=== PATIENT | male | born 1980 | race Caucasian/White ===

== ENCOUNTER 2018-05-24 14:36 | Emergency (ER) | payer MEDICAID ==
--- NOTE | 2018-05-24 14:52 | Emergency Department Record ---
History of Present Illness - General Chief Complaint: Abdominal Pain Stated Complaint: LOWER LT ABDOMINAL PAIN Time Seen by Provider: 05/24/18 14:45 Source: Patient Mode of Arrival: Ambulatory Limitations: No limitations - History of Present Illness Initial Comments: The patient is here due to worsening LLQ AP. The patient has had a L inguinal hernia for a long time and was scheduled to get it fixed 3 weeks ago but cancelled the surgery. Today he was shoveling and felt a sharp pain and the hernia worsened. Due to that fact he is now in the ER. There has been no fever, chills, vomiting, diarrhea or dysuria. MD Complaint: Abdominal pain Onset/Timin -: Days(s) Location: LLQ Radiation: None Consistency: Constant Improves With: Nothing Worsens With: Nothing Associated Symptoms: Denies other symptoms - Related Data Previous Rx's Medication Instructions Recorded Naproxen [Naprosyn] 500 mg PO BID #14 tablet. 05/24/18 Allergies Allergy/AdvReac Type Severity Reaction Status Date / Time No Known Allergies Allergy no Verified 05/24/18 14:39 allergies Travel Screening - Travel/Exposure Within Last 30 Days Have you traveled within the last 30 days?: No Review of Systems Constitutional: Denies: Chills, Fever Past Medical History - SOCIAL HISTORY Smoking Status: Current every day smoker Alcohol Use: None - RESPIRATORY Hx Respiratory Disorders: No - CARDIOVASCULAR Hx Cardio Disorders: Yes Hx Hypertension: Yes - NEURO Hx Neuro Disorders: No - GI Hx GI Disorders: Yes Comment:: hernia - Hx Genitourinary Disorders: No - ENDOCRINE Hx Endocrine Disorders: Yes Hx Diabetes: Yes - MUSCULOSKELETAL Hx Musculoskeletal Disorders: No - PSYCH Hx Psych Problems: No - HEMATOLOGY/ONCOLOGY Hx Hematology/Oncology Disorders: No Family Medical History Any Significant Family History?: No Physical Exam - General General Appearance: Alert, Cooperative, No acute distress - Head Head exam: Atraumatic, Normocephalic - Eye Eye exam: Normal appearance - Respiratory Respiratory exam: Normal lung sounds bilaterally. negative: Respiratory distress - Cardiovascular Cardiovascular Exam: Regular rate, Normal rhythm, Normal heart sounds - GI/Abdominal GI/Abdominal exam: Soft, Normal bowel sounds, Hernia (The patient has a very easily reducible L inguinal hernia with mild tenderness. ), Tenderness (LLQ). negative: Guarding, Organomegaly, Rebound - exam: Circumcision, Testicular tenderness (There is mild L testicle tenderness. ). negative: Scrotal swelling, Urethral discharge, Vertical testicular lie - Extremities Extremities exam: Normal inspection, Full ROM, Normal capillary refill. negative: Tenderness Course Vital Signs 05/24/18 14:40 Temperature 97.9 F Pulse Rate 91 H Respiratory 20 Rate Blood Pressure 129/90 Pulse Ox 96 - Reevaluation(s) Reevaluation #1: Further hx from the patient: he states he has had the large hernia for a long time and does usually push it in successfully. Since he shoveled he felt a sharp pain and felt the hernia was larger. He is still able to reduce it himself. 05/24/18 15:21 Reevaluation #2: I did discuss the case with the patient's surgeon Dr. Randolph and he would like to see the patient in the office in 2 days where he will discuss surgical options with him. 05/24/18 15:23 Reevaluation #3: The patient is resting comfortably but his L inguinal hernia did again become painful. The hernia is again very easily reducible with resolution of his pain. I explained again the need for seeing Dr. Randolph on Thu in 2 days. He is to take Naprosyn for pain and to not lift or bend at work and is to return for any worsening symptoms. 05/24/18 16:28 Medical Decision Making - Data Complexity MDM Data: Labs Ordered and/or Reviewed, X-Ray Ordered and/or Reviewed - Radiology Data Radiology results: Report reviewed (Testicle US: Neg.) Disposition Disposition: Discharge Clinical Impression: Inguinal hernia Qualifiers: Obstruction and gangrene presence: without obstruction or gangrene Laterality: unilateral Recurrence: recurrent Qualified Code(s): K40.91 - Unilateral inguinal hernia, without obstruction or gangrene, recurrent Disposition: Home, Self-Care Condition: (2) Stable Instructions: Inguinal Hernia (ED) Additional Instructions: Please keep the hernia pushed in and no lifting or bending at work. Please see Dr. Randolph in the office on Thursday, call [phone] for the appointment. Return to the ER for any worsening swelling, pain, vomiting, or fever. Prescriptions: Naproxen [Naprosyn] 500 mg PO BID #14 tablet. Forms: Patient Portal Access Time of Disposition: 16:33 Quality - Quality Measures Quality Measures: N/A - Blood Pressure Screening View Details: Yes Does Patient Have Any of the Following: No Blood Pressure Classification: Hypertensive Reading Systolic Measurement: 129 Diastolic Measurement: 90 Screening for High Blood Pressure: < First Hypertensive BP, F/U Documented > [ G8950] First Hypertensive Follow-up Interventions: Referral to alternative/primary care provider.
[2018-05-24 15:10] LABS: URINE APPEARANCE CLEAR; URINE BILIRUBIN NEGATIVE (NEGATIVE); URINE BLOOD NEGATIVE (NEGATIVE); URINE COLOR YELLOW; URINE GLUCOSE (UA) NEGATIVE (NEGATIVE); URINE KETONE NEGATIVE (NEGATIVE); URINE LEUKOCYTE ESTERASE NEGATIVE (NEGATIVE); URINE NITRITE NEGATIVE (NEGATIVE); URINE PROTEIN NEGATIVE (NEGATIVE)
--- NOTE | 2018-05-25 06:58 | ULTRASOUND REPORT ---
EXAM: SCROTAL ULTRASOUND HISTORY: LEFT GROIN PAIN AFTER SHOVELING THIS MORNING, KNOWN HERNIA. TECHNIQUE: Scrotal ultrasound was obtained with Doppler. Comparison: None. FINDINGS: The right testicle measures 4.9 x 2.6 x 2.2 cm. The left testicle measures 3.6 x 2.2 x 2.0 cm. No intratesticular mass is seen. Bilateral intratesticular arterial waveforms are demonstrated. Minimal asymmetric heterogeneity of the left testicular parenchymal echotexture is noted, possibly artifactual. Small left hydrocele. Simple appearing 3 mm left epididymal head cyst. There is slight asymmetric echogenic prominence in the left inguinal region. No obvious peristalsing bowel is seen in this region. IMPRESSION: 1. NO EVIDENCE OF TESTICULAR TORSION. 2. SLIGHTLY ASYMMETRIC ECHOGENIC PROMINENCE IN THE LEFT INGUINAL REGION WITHOUT OBVIOUS PERISTALSING BOWEL; COULD REPRESENT A COMPONENT OF INGUINAL HERNIA. 3. SMALL NONSPECIFIC SCROTAL HYDROCELE. JOB NUMBER: [id number] MTDD
--- NOTE | 2018-05-26 18:23 | Emergency Department Record ---
History of Present Illness - General Chief Complaint: Abdominal Pain Stated Complaint: LOWER LT ABDOMINAL PAIN Time Seen by Provider: 05/24/18 14:45 Source: Patient Mode of Arrival: Ambulatory Limitations: No limitations - History of Present Illness MD Complaint: Abdominal pain Onset/Timin -: Days(s) Location: LLQ Radiation: None Consistency: Constant Improves With: Nothing Worsens With: Nothing Associated Symptoms: Denies other symptoms - Related Data Previous Rx's Medication Instructions Recorded Naproxen [Naprosyn] 500 mg PO BID #14 tablet. 05/24/18 Allergies Allergy/AdvReac Type Severity Reaction Status Date / Time No Known Allergies Allergy no Verified 05/24/18 14:39 allergies Travel Screening - Travel/Exposure Within Last 30 Days Have you traveled within the last 30 days?: No Review of Systems Constitutional: Denies: Chills, Fever Eyes: Denies: Eye discharge ENT: Denies: Congestion Cardiovascular: Denies: Arrhythmia, Chest pain Endocrine: Denies: Fatigue Gastrointestinal: Reports: Abdominal pain. Denies: Nausea Genitourinary: Reports: Testicular pain. Denies: Dysuria Musculoskeletal: Denies: Arthralgia Skin: Denies: Bruising Neurological: Denies: Abnormal gait Past Medical History - SOCIAL HISTORY Smoking Status: Current every day smoker Alcohol Use: None - RESPIRATORY Hx Respiratory Disorders: No - CARDIOVASCULAR Hx Cardio Disorders: Yes Hx Hypertension: Yes - NEURO Hx Neuro Disorders: No - GI Hx GI Disorders: Yes Comment:: hernia - Hx Genitourinary Disorders: No - ENDOCRINE Hx Endocrine Disorders: Yes Hx Diabetes: Yes - MUSCULOSKELETAL Hx Musculoskeletal Disorders: No - PSYCH Hx Psych Problems: No - HEMATOLOGY/ONCOLOGY Hx Hematology/Oncology Disorders: No Family Medical History Any Significant Family History?: No Physical Exam - General Limitations: No limitations Course Vital Signs 05/24/18 05/24/18 14:40 16:43 Temperature 97.9 F 97.7 F Pulse Rate 91 H 87 Respiratory 20 18 Rate Blood Pressure 129/90 124/77 Pulse Ox 96 97 Medical Decision Making - Lab Data Lab Results 05/24/18 Range/Units 15:00 Urine Color Yellow Urine Appearance Clear Urine pH 7.5 (5.0-8.0) Ur Specific Andreas 1.020 (1.002-1.030) Urine Protein Negative (NEGATIVE) Urine Glucose (UA) Negative (NEGATIVE) Urine Ketones Negative (NEGATIVE) Urine Blood Negative (NEGATIVE) Urine Nitrite Negative (NEGATIVE) Urine Bilirubin Negative (NEGATIVE) Urine Urobilinogen 1.0 (0.20 - 1.00) E.U./dL Ur Leukocyte Esterase Negative (NEGATIVE) Disposition Clinical Impression: Inguinal hernia Qualifiers: Obstruction and gangrene presence: without obstruction or gangrene Laterality: unilateral Recurrence: recurrent Qualified Code(s): K40.91 - Unilateral inguinal hernia, without obstruction or gangrene, recurrent Disposition: Home, Self-Care Condition: (2) Stable Instructions: Inguinal Hernia (ED) Additional Instructions: Please keep the hernia pushed in and no lifting or bending at work. Please see Dr. Randolph in the office on Thursday, call [phone] for the appointment. Return to the ER for any worsening swelling, pain, vomiting, or fever. Prescriptions: Naproxen [Naprosyn] 500 mg PO BID #14 tablet.dr Forms: Patient Portal Access Quality - Quality Measures Quality Measures: N/A - Blood Pressure Screening View Details: Yes Does Patient Have Any of the Following: No Blood Pressure Classification: Pre-Hypertensive BP Reading Systolic Measurement: 124 Diastolic Measurement: 77 Screening for High Blood Pressure: < Pre-Hypertensive BP, F/U Documented > [ G8950] Pre-Hypertensive Follow-up Interventions: Referral to alternative/primary care provider.
== END 2018-05-24 16:45 | disposition home or self-care (01) ==
LOC: ER 14:36
DX: K40.91 Unilateral inguinal hernia, without obstruction or gangrene, recurrent (principal); I10 Essential (primary) hypertension; F17.210 Nicotine dependence, cigarettes, uncomplicated; E11.9 Type 2 diabetes mellitus without complications
CPT/HCPCS: 76870; 81003; 99283; 99284

== ENCOUNTER 2018-07-16 13:00 | Emergency (ER) | payer MEDICAID ==
[2018-07-16] MEDS ORDERED: IPRATROPIUM/ALBUTEROL (0.5MG/3MG) NEB INH ONE (13:24)
[2018-07-16 13:51] LABS: BASO % 0.3 % (0-6); EOS % 2.8 % (0-6); GRAN % 68.7 % (47-80); HEMATOCRIT 45.3 % (42.0-52.0); HEMOGLOBIN 15.9 gm/dl (14.0-18.0); MEAN CELL VOLUME 89.2 fl (81-97); MEAN CORPUSCULAR HEMOGLOBIN 31.3 pg (27-33); MEAN CORPUSCULAR HGB CONC 35.1 g/dl (32-36); MONO % 9.2 % (0-9); PLATELET COUNT 228 K/uL (130-400); RED BLOOD COUNT 5.08 M/uL (4.40-5.70); RED CELL DISTRIBUTION WIDTH 13.4 % (11.5-14.5); WHITE BLOOD COUNT W/O DIFF 11.5 K/uL (4.2-12.2)
[2018-07-16 14:02] LABS: BLOOD UREA NITROGEN 10 mg/dL (6-20); CREATININE 0.7 mg/dL (0.7-1.2); EST GLOMERULAR FILTRATION RATE > 60 mL/min
[2018-07-16 14:05] LABS: GLUCOSE,RANDOM 96 mg/dL (74-109)
[2018-07-16] MEDS ORDERED: HEPARIN SODIUM 1000 UNIT/1 ML 10ML VIAL IVP ONE (14:35)
--- NOTE | 2018-07-16 14:44 | Emergency Department Record ---
History of Present Illness - General Chief Complaint: Difficulty Breathing Stated Complaint: CLAIRE Time Seen by Provider: 07/16/18 13:14 Source: Patient Mode of Arrival: Ambulatory Limitations: No limitations - History of Present Illness Initial Comments: pt has productive green cough and feels sob. pts chest feels tight. he smokes MD Complaint: Cough, Shortness of breath Onset/Timin -: Days(s) Severity scale (1-10): 7 Improves With: Nothing Worsens With: Nothing Context: Allergen exposure Associated Symptoms: Cough, Pain with inspiration, Sputum production - Related Data Previous Rx's Medication Instructions Recorded Azithromycin [Zithromax] 250 mg PO DAILY #6 tab 07/16/18 Allergies Allergy/AdvReac Type Severity Reaction Status Date / Time No Known Allergies Allergy no Unverified 07/07/18 17:06 allergies Travel Screening - Travel/Exposure Within Last 30 Days Have you traveled within the last 30 days?: No - Travel/Exposure Within Last Year Have you traveled outside the [place] in the last year?: No - Additonal Travel Details Have you been exposed to anyone with a communicable illness?: No - Travel Symptoms Symptom Screening: None Review of Systems Reviewed: No additional complaints except as noted below Constitutional: Reports: As per HPI. Denies: Chills, Fever, Malaise, Night sweats, Weakness, Weight change Eyes: Reports: As per HPI. Denies: Eye discharge, Eye pain, Photophobia, Vision change ENT: Reports: As per HPI. Denies: Congestion, Dental pain, Ear pain, Epistaxis , Hearing loss, Throat pain Respiratory: Reports: As per HPI, Cough, Dyspnea. Denies: Hemoptysis, Stridor, Wheezes Cardiovascular: Reports: As per HPI. Denies: Arrhythmia, Chest pain, Dyspnea on exertion, Edema, Murmurs, Orthopnea, Palpitations, Paroxysmal nocturnal dyspnea, Rheumatic Fever, Syncope Endocrine: Reports: As per HPI. Denies: Fatigue, Heat or cold intolerance, Polydipsia, Polyuria Gastrointestinal: Reports: As per HPI. Denies: Abdominal pain, Constipation, Diarrhea, Hematemesis, Hematochezia, Melena, Nausea, Vomiting Genitourinary: Reports: As per HPI. Denies: Dysuria, Frequency, Hematuria, Incontinence, Retention, Testicular pain, Testicular mass, Urgency Musculoskeletal: Reports: As per HPI. Denies: Arthralgia, Back pain, Gout, Joint swelling, Myalgia, Neck pain Skin: Reports: As per HPI. Denies: Bruising, Change in color, Change in hair/ nails, Lesions, Pruritus, Rash Neurological: Reports: As per HPI. Denies: Abnormal gait, Confusion, Headache, Numbness, Paresthesias, Seizure, Tingling, Tremors, Vertigo, Weakness Psychiatric: Reports: As per HPI. Denies: Anxiety, Auditory hallucinations, Depression, Homicidal thoughts, Suicidal thoughts, Visual hallucinations Hematological/Lymphatic: Reports: As per HPI. Denies: Anemia, Blood Clots, Easy bleeding, Easy bruising, Swollen glands Past Medical History - SOCIAL HISTORY Smoking Status: Current every day smoker Alcohol Use: None Drug Use: None - RESPIRATORY Hx Respiratory Disorders: Yes Hx Sleep Apnea: Yes (not dx'd) - CARDIOVASCULAR Hx Cardio Disorders: Yes Hx Hypertension: Yes - NEURO Hx Neuro Disorders: Yes Hx Headaches: Yes - GI Hx GI Disorders: Yes Comment:: hernia - Hx Genitourinary Disorders: No - ENDOCRINE Hx Endocrine Disorders: Yes Hx Diabetes: Yes - MUSCULOSKELETAL Hx Musculoskeletal Disorders: No - PSYCH Hx Psych Problems: No - HEMATOLOGY/ONCOLOGY Hx Hematology/Oncology Disorders: No Family Medical History Any Significant Family History?: No Physical Exam - General General Appearance: Alert, Oriented x3, Cooperative, Mild distress - Head Head exam: Normal inspection - Eye Eye exam: Normal appearance, PERRL, EOMI Pupils: Normal accommodation - ENT ENT exam: Normal exam, Mucous membranes moist, Normal external ear exam, Normal orophraynx, TM's normal bilaterally Ear exam: Normal external inspection. negative: External canal tenderness Nasal Exam: Normal inspection. negative: Discharge, Sinus tenderness Mouth exam: Normal external inspection, Tongue normal Teeth exam: Normal inspection. negative: Dental caries Throat exam: Normal inspection. negative: Tonsillar erythema, Tonsillar exudate - Neck Neck exam: Normal inspection, Full ROM. negative: Tenderness - Respiratory Respiratory exam: Normal lung sounds bilaterally. negative: Respiratory distress - Cardiovascular Cardiovascular Exam: Regular rate, Normal rhythm, Normal heart sounds - GI/Abdominal GI/Abdominal exam: Soft, Normal bowel sounds. negative: Tenderness - Rectal Rectal exam: Deferred - exam: Deferred - Extremities Extremities exam: Normal inspection, Full ROM, Normal capillary refill. negative: Tenderness - Back Back exam: Reports: Normal inspection, Full ROM. Denies: Muscle spasm, Rash noted, Tenderness - Neurological Neurological exam: Alert, CN II-XII intact, Normal gait, Oriented X3 - Psychiatric Psychiatric exam: Normal affect, Normal mood - Skin Skin exam: Dry, Intact, Normal color, Warm Course Vital Signs 07/16/18 07/16/18 07/16/18 13:03 13:50 14:16 Temperature 98.5 F Pulse Rate 109 H 92 H Pulse Rate [ 99 H Pulse Ox Probe] Respiratory 20 16 20 Rate Blood Pressure 108/72 Blood Pressure 116/75 [Left Arm] Pulse Ox 99 95 94 L Medical Decision Making - Lab Data Result diagrams: 07/16/18 13:47 07/16/18 13:47 Lab Results 07/16/18 07/16/18 Range/Units 13:47 13:47 WBC 11.5 (4.2-12.2) K/uL RBC 5.08 (4.40-5.70) M/uL Hgb 15.9 (14.0-18.0) gm/dl Hct 45.3 (42.0-52.0) % MCV 89.2 (81-97) fl MCH 31.3 (27-33) pg MCHC 35.1 (32-36) g/dl RDW 13.4 (11.5-14.5) % Plt Count 228 (130-400) K/uL MPV 10.0 (7.4-10.4) fl Gran % 68.7 (47-80) % Lymphocytes % 19.0 (16-45) % Monocytes % 9.2 H (0-9) % Eosinophils % 2.8 (0-6) % Basophils % 0.3 (0-6) % Sodium 143 (136-145) mmol/L Potassium 3.9 (3.4-4.5) mmol/L Chloride 109 H (98-107) mmol/L Carbon Dioxide 23.0 (22-29) mmol/L Anion Gap 11.0 (7-16) BUN 10 (6-20) mg/dL Creatinine 0.7 (0.7-1.2) mg/dL Estimated GFR > 60 mL/min Random Glucose 96 (74-109) mg/dL Calcium 9.0 (8.6-10.0) mg/dL Troponin T < 0.010 (0-0.010) ng/mL Disposition Disposition: Discharge Clinical Impression: Bronchitis Disposition: Home, Self-Care Condition: (1) Good Instructions: Acute Bronchitis (ED), How to Stop Smoking (ED) Additional Instructions: follow up with family doctor. return sooner if worse. stop smoking. Prescriptions: Azithromycin [Zithromax] 250 mg PO DAILY #6 tab Quality - Quality Measures Quality Measures: N/A - Blood Pressure Screening Does Patient Have Any of the Following: No Blood Pressure Classification: Normal BP Reading Systolic Measurement: 108 Diastolic Measurement: 72 Screening for High Blood Pressure: < Normal BP, F/U Not Required > [G8783]
[2018-07-16] MEDS ORDERED: HEPARIN SODIUM/D5W 25,000 UNITS/500 ML BAG IV SCH (14:45)
--- NOTE | 2018-07-19 14:45 | RADIOLOGY REPORT ---
EXAM: CHEST, TWO VIEWS HISTORY: DIFFICULTY IN BREATHING. TECHNIQUE: Frontal and lateral views of the chest were performed. FINDINGS: The heart size is normal. No pulmonary vascular congestion. Overlying skin folds are present. The osseous structures are normal. IMPRESSION: NEGATIVE CHEST EXAMINATION. JOB NUMBER: [id number] MTDD
== END 2018-07-16 14:57 | disposition home or self-care (01) ==
LOC: ER 13:00
DX: J20.9 Acute bronchitis, unspecified (principal); R07.89 Other chest pain; I10 Essential (primary) hypertension; F17.210 Nicotine dependence, cigarettes, uncomplicated; M25.562 Pain in left knee
CPT/HCPCS: 71046; 80048; 84484; 85025; 93005; 93010; 94640; 99284

== ENCOUNTER 2018-11-05 01:42 | Emergency (ER) | payer SELFPAY ==
--- NOTE | 2018-11-05 02:11 | Emergency Department Record ---
History of Present Illness - General Chief complaint: Male Urogenital Problem Stated complaint: GROIN PAIN Time Seen by Provider: 11/05/18 02:04 Source: Patient Mode of Arrival: Ambulatory Limitations: No limitations - History of Present Illness Initial comments: 38 yo male presents to ED for evaluation of swelling, redness, and pain to the base of noel penis that began 2-3 days ago. Patient denies injury to the penis, does report fever symptoms and history of NIDDM. Patient reports recent hernia repair to the left inguinal region 2-3 months ago as well with Dr. Randolph. Patient denies dysuria or hematuria sympotms. MD Complaint: Other (Swelling/pain to the base of the penis) Onset/Timin -: Days(s) Location: Penis, Left testicle, Right testicle Radiation: None Severity: Moderate Severity scale (1-10): 8 Quality: Aching Consistency: Constant, Getting worse Improves with: None Worsens with: Sexual intercourse - Related Data Sexually active: Yes Allergies Allergy/AdvReac Type Severity Reaction Status Date / Time No Known Allergies Allergy no Unverified 07/07/18 17:06 allergies Travel Screening - Travel/Exposure Within Last 30 Days Have you traveled within the last 30 days?: No - Travel Symptoms Symptom Screening: None Review of Systems Constitutional: Reports: Fever. Denies: Chills, Malaise Eyes: Denies: Eye discharge, Eye pain ENT: Denies: Congestion, Ear pain, Epistaxis Respiratory: Denies: Cough, Dyspnea Cardiovascular: Denies: Chest pain, Dyspnea on exertion Endocrine: Denies: Fatigue, Heat or cold intolerance Gastrointestinal: Denies: Abdominal pain, Nausea, Vomiting Genitourinary: Denies: Incontinence, Retention Musculoskeletal: Denies: Arthralgia, Back pain Skin: Reports: Rash. Denies: Bruising, Change in color Neurological: Denies: Abnormal gait, Confusion, Headache, Seizure Psychiatric: Denies: Anxiety Hematological/Lymphatic: Denies: Anemia, Blood Clots Past Medical History - SOCIAL HISTORY Smoking Status: Current every day smoker Alcohol Use: None Drug Use: Occasional Drug Use Detail:: Marijuana - RESPIRATORY Hx Respiratory Disorders: Yes Hx Sleep Apnea: Yes (not dx'd) - CARDIOVASCULAR Hx Cardio Disorders: Yes Hx Hypertension: Yes - NEURO Hx Neuro Disorders: Yes Hx Headaches: Yes - GI Hx GI Disorders: Yes Comment:: hernia - Hx Genitourinary Disorders: No - ENDOCRINE Hx Endocrine Disorders: Yes Hx Diabetes: Yes - MUSCULOSKELETAL Hx Musculoskeletal Disorders: No - PSYCH Hx Psych Problems: No - HEMATOLOGY/ONCOLOGY Hx Hematology/Oncology Disorders: No Family Medical History Any Significant Family History?: No Family Hx Comment (NOT TO BE USED IN PLACE OF ITEMS BELOW): denies Physical Exam - General General Appearance: Alert, Oriented x3, Cooperative, Moderate distress Limitations: No limitations - Head Head exam: Atraumatic, Normocephalic, Normal inspection Head exam detail: negative: Abrasion, Contusion, Jacobo's sign, General tenderness, Hematoma, Laceration - Eye Eye exam: Normal appearance. negative: Conjunctival injection, Periorbital swelling, Periorbital tenderness, Scleral icterus - ENT Ear exam: negative: Auricular hematoma, Auricular trauma Nasal Exam: negative: Active bleeding, Discharge, Dried blood, Foreign body Mouth exam: negative: Drooling, Laceration, Muffled voice, Tongue elevation - Neck Neck exam: Normal inspection. negative: Meningismus, Tenderness - Respiratory Respiratory exam: Normal lung sounds bilaterally. negative: Rales, Respiratory distress, Rhonchi, Stridor - Cardiovascular Cardiovascular Exam: Normal rhythm, Normal heart sounds, Tachycardia - GI/Abdominal GI/Abdominal exam: Soft. negative: Rebound, Rigid, Tenderness - Rectal Rectal exam: Deferred - exam: Circumcision, Other (Swelling, induration to the left-base of the penis extending to the scrotal region, no extension into the perineal region.) - Extremities Extremities exam: Normal inspection. negative: Pedal edema, Tenderness - Back Back exam: Denies: CVA tenderness (R), CVA tenderness (L) - Neurological Neurological exam: Alert, Normal gait, Oriented X3 - Psychiatric Psychiatric exam: Normal affect, Normal mood - Skin Skin exam: Erythema Type of lesion: negative: abrasion Distribution of rash: Genitals Description of rash: Erythematous, Indurated, Swelling, Tenderness Course Vital Signs 11/05/18 01:52 Temperature 100.4 F H Pulse Rate [ 116 H Pulse Ox Probe] Respiratory 20 Rate Blood Pressure 137/84 [Left Arm] Pulse Ox 98 - Reevaluation(s) Reevaluation #1: 11/05/18 02:12 Case was discussed with Dr. Faust, will initiate transfer for urological consultation without further evaluation here at [facility] to avoid a delay in care. Patient and Dr. Faust are in agreement with the plan for immediate transfer at this time with instructions to go directly to [facility] ER for evaluation per patient choice. Patient is requesting that his SO drive him. Disposition Disposition: Transfer Clinical Impression: Penile abscess Disposition: Acute Care Hospital Transfer Transfer To: [facility] Reason For Transfer: Urological consultation, Ultrasound Accepting Physician: Govind Time Discussed w/Accepting Physician: 02:09 Condition: (2) Stable Forms: Patient Portal Access Time of Disposition: :09 Quality - Quality Measures Quality Measures: N/A - Blood Pressure Screening Does Patient Have Any of the Following: No Blood Pressure Classification: Pre-Hypertensive BP Reading Systolic Measurement: 137 Diastolic Measurement: 84 Screening for High Blood Pressure: < Pre-Hypertensive BP, F/U Documented > [G8950] Pre-Hypertensive Follow-up Interventions: Referral to alternative/primary care provider.
== END 2018-11-05 02:20 | disposition short-term general hospital (02) ==
LOC: ER 01:42
DX: N48.21 Abscess of corpus cavernosum and penis (principal); E11.9 Type 2 diabetes mellitus without complications; I10 Essential (primary) hypertension; F17.210 Nicotine dependence, cigarettes, uncomplicated
CPT/HCPCS: 99285